=== PATIENT | male | born 1995 | race Two or more races ===

== ENCOUNTER 2020-03-14 09:40 | Outpatient (REF) | payer OTHER, SELFPAY ==
[2020-03-14 11:08] LABS: Phenytoin Dilantin 14.6 ug/mL (10.0-20.0)
== END 2020-03-14 09:41 | disposition home or self-care (01) ==
LOC: HO.LAB 09:40
PROVIDERS: Visit Provider Psychiatry & Neurology Neurology
DX: G40.909 Epilepsy, unspecified, not intractable, without status epilepticus (principal)
CPT/HCPCS: 80185

== ENCOUNTER 2020-09-12 09:20 | Outpatient (REF) | payer OTHER, SELFPAY ==
[2020-09-12 12:00] LABS: Phenytoin Dilantin 11.6 ug/mL (10.0-20.0)
== END 2020-09-12 09:21 | disposition home or self-care (01) ==
LOC: HO.LAB 09:20
PROVIDERS: Visit Provider Psychiatry & Neurology Neurology
DX: G40.909 Epilepsy, unspecified, not intractable, without status epilepticus (principal)
CPT/HCPCS: 36415; 80185

== ENCOUNTER 2023-04-16 08:41 | Outpatient (AMB) | payer OTHER, SELFPAY ==
--- NOTE | 2023-04-16 09:14 | AM.OFFWIN_ITS ---
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 Reporting symptoms of sinus congestion, sore throat and difficulty swallowing. Low-grade fever. No family member is sick. No recent travel. Patient reports symptoms of malaise and fatigue. PFSH Social History Patient Tobacco Use Status: Never used Tobacco Physical Exam Vital Signs: Last Vital Signs Temp 97.8 F 04/16/23 09:16 Pulse 73 04/16/23 09:16 BP 130/70 04/16/23 09:16 Pulse Ox 99 04/16/23 09:16 Oxygen Delivery Method Room Air 04/16/23 09:16 BMI result Body Mass Index 19.9 Const General: cooperative and healthy appearing Nutritional Appearance: well nourished Orientation/consciousness: patient oriented x3 Limitations: no limitations HEENT Head: Yes normal to inspection Eyes General: appearance normal, both eyes and all related structures Neck Neck: Yes normal visual inspection Chest Chest palpation & inspection: normal palpation of entire chest wall Resp Effort & Inspection: normal respiratory effort Neuro General: patient oriented x3 Assessment & Plan Assessment & Plan (1) Upper respiratory tract infection: Code(s): J06.9 - Acute upper respiratory infection, unspecified Plan: Increase fluid intake. Tylenol for aches and pains. If symptoms worsen, follow-up here for a recheck. No antibiotics needed. Self-limiting illness. Coding Level of Care Code Est Pt Level 3 (61220) Diagnoses Upper respiratory tract infection J06.9
[2023-04-16 09:16] VITALS: BP 130/70; PULSE 73; TEMP 36.6; O2SAT 99; BMI 19.9
== END 2023-04-16 09:49 | disposition home or self-care (01) ==
PROVIDERS: Visit Provider Internal Medicine
DX: J06.9 Acute upper respiratory infection, unspecified (principal)
CPT/HCPCS: 99213

== ENCOUNTER 2024-06-07 12:09 | Emergency (ER) | payer OTHER, SELFPAY ==
[2024-06-07 12:19] VITALS: BP 112/64; PULSE 105; RESP 20; TEMP 37.3; O2SAT 99; BMI 20.2
--- NOTE | 2024-06-07 12:19 | ED_ITS ---
HPI - Nausea/Vomiting/Diarrhea General Chief complaint: Nausea/Vomiting/Diarrhea Stated complaint: vomitting Time Seen by Provider: 06/07/24 12:55 History of Present Illness ED Provider: Dean DOMINGUEZ Narrative: The patient is a 28-year-old male. He has a history of a seizure disorder. He is on phenytoin. He started to feel unwell early this morning. He became nauseated and vomited multiple times. This seemed to recur several times and so finally he was brought to the emergency room by his family. No fever. No diarrhea. Related Data Previous Rx's ?Medication ?Instructions ?Recorded ondansetron 4 mg disintegrating 4 mg PO Q6H PRN nausea and 06/07/24 tablet vomiting #10 tabs Allergies Allergy/AdvReac Type Severity Reaction Status Date / Time valproic acid Allergy Unknown nausea Verified 06/07/24 12:21 No Known Allergies Allergy Verified 06/07/24 12:21 Review of Systems 2 Review of Systems: Yes all other systems are reviewed and are negative [facility] Social History Social History Patient Tobacco Use Status: Never used Tobacco Advance Directives: No Advance Directives Information Provided: No Physical Exam 2 Vital Signs: Vital Signs: Last Vital Signs Temp 98.6 F 06/07/24 16:15 Pulse 94 06/07/24 16:15 Resp 18 06/07/24 16:15 BP 110/69 06/07/24 16:15 Pulse Ox 99 06/07/24 16:15 O2 Del Method Room Air 06/07/24 16:15 BMI result Body Mass Index 20.2 Const: Other: The patient looks as though he is an ordinarily healthy 28-year-old. He looks mildly unwell and quite anxious. He was tachypneic. HEENT: Other: Face is symmetrical. Mucous membranes moist. Pharynx is normal. Eyes: General: appearance normal, both eyes and all related structures Neck: Neck: Yes full ROM and Yes no lymphadenopathy Resp: Other: The patient was tachypneic. Breath sounds were clear bilaterally. Cardio: Rate: regular rate Rhythm: regular rhythm Heart sounds: S1 normal heart sound present and S2 normal heart sound present GI: Other: The abdomen was flat and soft. I did not appreciate any focal tenderness. Skin: Other: Skin is dry and unremarkable Neuro: Other: The patient was awake and alert with anxious affect and tachypnea. Cranial nerves 2-12 are intact. He moves all extremities symmetrically and appropriately. Extrem: Other: No peripheral edema Course Course Course Narrative: This is an RME performed by Carlos A Shine CNP: Additional HPI, ROS, PE not included below will be deferred to primary provider. Patient is a 28-year-old male who presents emergency department for evaluation of nausea multiple episodes of vomiting today associated back and neck pain. Denies fevers, chills, chest pain, shortness of breath, diarrhea, symptoms. Plan: Serum labs, viral serologies, urinalysis Medications Administered Discontinued Medications Generic Name Dose Route Start Last Admin Trade Name Freq PRN Reason Stop Dose Admin Sodium Chloride 1,000 mls @ 999 mls/hr 06/07/24 13:15 06/07/24 14:51 Ns IV 06/07/24 14:15 Infused .Q1H1M VARSHA Infusion Ketorolac Tromethamine 10 mg 06/07/24 13:01 06/07/24 13:41 Ketorolac Tromethamine 15 Mg/Ml Vial IVPUSH 06/07/24 13:02 10 mg ONCE ONE Administration Ondansetron HCl 4 mg 06/07/24 13:01 06/07/24 13:41 Ondansetron Hcl 4 Mg/2 Ml Vial IVPUSH 06/07/24 13:02 4 mg ONCE ONE Administration Medical Decision Making Medical Decision Making [facility] Narrative: The patient is a 28-year-old male who presents with the acute vomiting. His girlfriend wonders whether his fast food hamburger last night might have caused his symptoms today. His abdomen seems benign. He was given IV fluids, ketorolac, and ondansetron and felt much better. He tolerated oral intake. He will be discharged with a prescription for ondansetron. Lab Data 06/07/24 12:53 06/07/24 12:53 Labs: Lab Results 06/07/24 Range/Units 12:53 WBC 14.4 H (4.8-10.8) X10*3/uL RBC 5.44 (4.60-5.80) X10*6/uL Hgb 15.9 (14.0-18.0) g/dl Hct 48.1 (42.0-52.0) % MCV 88.4 (80.0-98.0) fL MCH 29.2 (27.0-33.0) pg MCHC 33.1 (31.0-36.0) g/dl RDW 13.5 (11.0-16.0) % Plt Count 233 (160-400) X10*3/uL MPV 10.5 (9.4-12.4) fL Immature Gran % (Auto) 0.4 (0.0-0.4) % Neut % (Auto) 88.3 H (45-73) % Lymph % (Auto) 2.1 L (20-40) % [place] % (Auto) 8.8 (2-11) % Eos % (Auto) 0.1 (0-4) % Baso % (Auto) 0.3 (0-2) % Lymph # (Auto) 0.3 L (1.2-4.9) X10*3/uL [place] # (Auto) 1.3 H (0.1-1.2) X10*3/uL Eos # (Auto) 0.0 (0.0-0.4) X10*3/uL Baso # (Auto) 0.0 (0.0-0.2) X10*3/uL Abs Immat Gran (auto) 0.06 H (0.00-0.03) X10*3/uL Absolute Neuts (auto) 12.7 H (2.0-8.3) x10*3/uL Absolute Nucleated RBC 0.000 (0.0-0.012) X10*3/uL Nucleated RBC % (auto) 0.0 (0.0-0.2) /100WBC Sodium 140 (135-145) mmol/L Potassium 4.4 (3.3-5.1) mmol/L Chloride 105 (96-108) mmol/L Carbon Dioxide 21 L (22-29) mmol/L Anion Gap 18 (12-20) BUN 15 (9-16) mg/dL Creatinine 1.06 (0.5-1.4) mg/dL Estim Creat Clear Calc 103.9 Estimated GFR > 60 Random Glucose 129 H (60-115) mg/dL Calcium 10.0 (8.4-10.2) mg/dL Total Bilirubin 1.2 H (0.0-1.0) mg/dL AST 22 (5-37) U/L ALT 11 (0-40) U/L Alkaline Phosphatase 82 (39-117) U/L C-Reactive Protein 0.86 H (< or = 0.50) mg/dL Total Protein 9.0 H (6.5-8.0) g/dL Albumin 4.9 (3.5-5.0) g/dL Lipase 14 (8-78) U/L Urine Color Dark Yellow Urine Appearance Clear Urine pH >= 9.0 (5.0-9.0) Ur Specific [place] >= 1.030 H (1.005-1.025) Urine Protein 100 (2+) H (Neg-Trace) mg/dL Urine Glucose (UA) Negative (Negative) mg/dL Urine Ketones 40 (Negative) mg/dL Urine Blood Negative (Negative) Urine Nitrite Negative (Negative) Ur Leukocyte Esterase Trace H (Negative) Urine RBC 0-2 (0-2) /HPF Urine WBC 0-5 (0-5) /HPF Ur Squamous Epith Cells 0-2 (0-2) /HPF Urine Bacteria None Seen (None Seen) Hyaline Casts 0-2 (0-2) /LPF Influenza Type A (PCR) NEGATIVE (Negative) Influenza Type B (PCR) NEGATIVE (Negative) RSV RNA Qual (PCR) NEGATIVE (Negative) SARS-CoV-2 RNA (RT-PCR) NEGATIVE (Negative) Discharge Plan Discharge Clinical Impression: Acute vomiting Patient Disposition: Home, Self-Care Instructions: Acute Nausea and Vomiting (ED) Additional Instructions: Please rest and take it easy today. Eat simple foods today like toast or well cooked rice. Drink clear fluids. I have sent a prescription for a medication called ondansetron (also known as Zofran) that you may use as needed if you have ongoing nausea. Please follow up with your regular doctor if you have ongoing concerns. Return to the emergency room if you feel significantly worse. Prescriptions: New ondansetron 4 mg tablet,disintegrating 4 mg PO Q6H PRN (Reason: nausea and vomiting) Qty: 10 0RF Referrals: [facility] [Provider Group] (acute vomiting) Interventions: ED Discharge Assessment Last Done: 06/07/24 16:15 Print Language: Sami
[2024-06-07 12:57] LABS: MANUAL DIFF FLAG NO
[2024-06-07 13:07] LABS: Appearance Urine Clear; Color Urine Dark Yellow; Glucose Urine UA Negative (Negative); Leukocyte Esterase Urine Trace (Negative); Nitrite Urine Negative (Negative); PH >= 9.0 (5.0-9.0); Specific Gravity - Urine >= 1.030 (1.005-1.025); UMIC TRIGGER UACC YES; Urine Blood Negative (Negative); Urine Ketones 40 mg/dL (Negative); Urine Protein 100 (2+) mg/dL (Neg-Trace)
[2024-06-07 13:08] LABS: Basophils Percent Auto 0.3 % (0-2); Eosinophils Percent Auto 0.1 % (0-4); Hematocrit 48.1 % (42.0-52.0); Hemoglobin 15.9 g/dl (14.0-18.0); Imm Gran Abs Auto 0.06 X10*3/uL (0.00-0.03); Imm Gran Pct Auto 0.4 % (0.0-0.4); Lymphocytes Absolute Auto 0.3 X10*3/uL (1.2-4.9); Lymphocytes Percent Auto 2.1 % (20-40); Mean Corpuscular HGB Conc 33.1 g/dl (31.0-36.0); Mean Corpuscular Hemoglobin 29.2 pg (27.0-33.0); Mean Corpuscular Volume 88.4 fL (80.0-98.0); Mean Platelet Volume 10.5 fL (9.4-12.4); Monocytes Absolute Auto 1.3 X10*3/uL (0.1-1.2); Monocytes Percent Auto 8.8 % (2-11); Neutrophils Absolute Auto 12.7 x10*3/uL (2.0-8.3); Neutrophils Percent Auto 88.3 % (45-73); Platelet Count 233 X10*3/uL (160-400); Red Blood Count 5.44 X10*6/uL (4.60-5.80); Red Cell Distribution Width 13.5 % (11.0-16.0); White Blood Count 14.4 X10*3/uL (4.8-10.8)
[2024-06-07 13:12] LABS: Bacteria Urine None Seen (None Seen); Hyaline Casts Urine 0-2 /LPF (0-2); RBC Urine 0-2 /HPF (0-2); Squamous Epithelial Cell Urine 0-2 /HPF (0-2); WBC Urine 0-5 /HPF (0-5)
[2024-06-07 13:19] LABS: Alanine Aminotransferase 11 U/L (0-40); Albumin Level 4.9 g/dL (3.5-5.0); Alkaline Phosphatase 82 U/L (39-117); Anion Gap 18 (12-20); Aspartate Amino Transferase 22 U/L (5-37); Bilirubin Total 1.2 mg/dL (0.0-1.0); Blood Urea Nitrogen 15 mg/dL (9-16); Carbon Dioxide 21 mmol/L (22-29); Chloride 105 mmol/L (96-108); Creatinine Clr Calc Pharmacy 103.9; Estimated Glomerular Filt Rate > 60; Glucose Random 129 mg/dL (60-115); Lipase 14 U/L (8-78); Potassium 4.4 mmol/L (3.3-5.1); Sodium 140 mmol/L (135-145)
[2024-06-07] MEDS: 0.9 % Sodium Chloride 1,000 ML 999 ML IV (13:33)
[2024-06-07 13:35] LABS: Influenza A PCR NEGATIVE (Negative); Influenza B PCR NEGATIVE (Negative); Resp Syncy Virus RNA Qual PCR NEGATIVE (Negative); SARS COV2 PCR INHOUSE NEGATIVE (Negative)
[2024-06-07] MEDS: Ketorolac Tromethamine 15 MG/ML VIAL 10 MG IVPUSH (13:41)
[2024-06-07] MEDS: ondansetron HCL 4 MG/2 ML VIAL IVPUSH (13:41)
[2024-06-07 14:22] LABS: C Reactive Protein 0.86 mg/dL (< or = 0.50)
[2024-06-07 16:15] VITALS: BP 110/69; PULSE 94; RESP 18; TEMP 37; O2SAT 99
== END 2024-06-07 16:18 | disposition home or self-care (01) ==
PROVIDERS: Nurse Practitioner Family; Emergency Provider Emergency Medicine
DX: R11.2 Nausea with vomiting, unspecified (principal); R06.82 Tachypnea, not elsewhere classified; Z03.818 Encounter for observation for suspected exposure to other biological agents ruled out; Z79.899 Other long term (current) drug therapy
CPT/HCPCS: 0241U; 80053; 81001; 81003; 83690; 85025; 86140; 96361; 96374; 96375; 99283; 99284; J1885; J2405